=== PATIENT | female | born 1995 | race African-American/Black ===

== ENCOUNTER 2016-08-25 18:40 | Emergency (ER) | payer OTHER, BC ==
[~2016-08-25] VITALS: Ht 167.6 cm; Wt 57.7 kg
[~2016-08-25 18:40] MED LIST: CEPHALEXIN250 M1 PO; FLEXERIL5 MG PO
[2016-08-25 18:42] VITALS: BP 132/107; PULSE 94; TEMP 98.7
[2016-08-25] MEDS ORDERED: DIFLUCAN50 MG PO (18:45)
[2016-08-25] MEDS ORDERED: STRIANT30 MG SQ (18:45)
[2016-08-25 19:07] LABS: BASO % 0.6 % (0.0-2.0); EOS # 0.1 (0.0-0.7); EOS % 1.5 % (0-4.0); GRAN # 1.9 (1.4-6.5); GRAN % 40.2 % (42.2-75.2); HEMATOCRIT 43.5 % (37.0-47.0); HEMOGLOBIN 13.5 g/dl (12.5-16.0); LYMPH # 2.3 (1.2-3.4); LYMPH % 48.2 % (20.0-51.0); MEAN CELL VOLUME 77 fl (80.0-100.0); MEAN CORPUSCULAR HEMOGLOBIN 24 pg (27.0-31.0); MEAN CORPUSCULAR HGB CONC 31 g/dl (33.0-37.0); MEAN PLATELET VOLUME 9.4 fl (7.4-10.4); MONO # 0.5 (0.1-0.6); MONO % 9.5 % (1.7-9.3); PLATELET COUNT 284 K/mm3 (130-400); RED BLOOD COUNT 5.68 M/mm3 (4.10-5.30); REDCELL DISTRIBUTION WIDTH-CV 14.6 % (11.5-14.5); WHITE BLOOD COUNT 4.7 K/mm3 (4.8-10.8)
[2016-08-25 19:08] LABS: INR 1.1 (0.8-3.0); PROTHROMBIN TIME 12.1 SECONDS (9.7-12.8)
[2016-08-25 19:11] LABS: PARTIAL THROMBOPLASTIN TIME 28.2 SECONDS (26.0-37.0)
[2016-08-25 19:16] LABS: ADJUSTED CALCIUM 9.1 mg/dL (8.4-10.2); ALBUMIN 4.5 gm/dL (3.5-5.0); BILIRUBIN,TOTAL 0.6 mg/dL (0.0-1.0); CALCIUM 9.5 mg/dL (8.4-10.2); CREATININE, serum 0.87 mg/dL (0.52-1.25); MAGNESIUM 1.8 mg/dL (1.6-2.3); PHOSPHOROUS 3.9 mg/dL (2.5-4.5); POTASSIUM 4.1 mmol/L (3.4-5.0)
== END 2016-08-25 21:00 | disposition left against medical advice (07) ==
LOC: COL.ER 18:40
PROVIDERS: Emergency Medicine
DX: S60.221A Contusion of right hand, initial encounter (principal); Z53.21 Procedure and treatment not carried out due to patient leaving prior to being seen by health care provider; V47.5XXA Car driver injured in collision with fixed or stationary object in traffic accident, initial encounter; Y92.410 Unspecified street and highway as the place of occurrence of the external cause; R41.3 Other amnesia; S06.9X9A Unspecified intracranial injury with loss of consciousness of unspecified duration, initial encounter; R40.2430 Glasgow coma scale score 3-8, unspecified time; R07.9 Chest pain, unspecified

== ENCOUNTER → 2016-09-14 | Outpatient (CLI) | payer OTHER, BC ==
[~2016-09-14] MED LIST changes: +DIFLUCAN50 MG PO; +STRIANT30 MG SQ
== END ==
LOC: COL.CARD 12:41
DX: R55 Syncope and collapse (principal); V87.7XXA Person injured in collision between other specified motor vehicles (traffic), initial encounter